=== PATIENT | female | born 1985 | race Caucasian/White ===

== ENCOUNTER 2020-02-29 21:34 | Emergency (ER) | payer MEDICAID, OTHER ==
[~2020-02-29] VITALS: Ht 167.6 cm; Wt 66.6 kg
[~2020-02-29 21:34] MED LIST: FLUO20CA39 PO; IMO2C PO; LACT1CAP61 PO; MYL80T PO; NORCO10T PO; PANT-47 PO; QUET-1 PO; RIFA550T PO; ZOF4T PO; birth control
[2020-02-29 21:38] VITALS: BP 115/78
[2020-02-29 22:00] LABS: CLARITY,URINE CLEAR (Clear)
[2020-02-29 22:01] LABS: URINE HCG NEGATIVE (NEG)
[2020-02-29 22:07] LABS: COLOR,URINE ORANGE (Yellow); UA COLLECTION TYPE CLN CATCH MIDSTREAM
[2020-02-29 22:31] LABS: BACTERIA,URINE 2+ /HPF (Neg); SQUAMOUS EPITHELIAL CELL,UR FEW /LPF (FEW); WBC,URINE 20-30 /HPF (0-4)
[2020-02-29 22:32] LABS: WBC CLUMPS,URINE MODERATE /HPF (NEGATIVE)
[2020-02-29] MEDS ORDERED: NITR100C6 PO (22:58)
[2020-02-29] MEDS ORDERED: nitrofuran/nitrofuran macrocrysal 100 MG capsule PO ONE (23:00)
== END 2020-02-29 23:16 | disposition home or self-care (01) ==
LOC: ER 21:35
DX: N30.90 Cystitis, unspecified without hematuria (principal); F31.9 Bipolar disorder, unspecified; F12.90 Cannabis use, unspecified, uncomplicated; F17.200 Nicotine dependence, unspecified, uncomplicated; Z72.89 Other problems related to lifestyle; Z90.49 Acquired absence of other specified parts of digestive tract; Z60.2 Problems related to living alone; Z88.1 Allergy status to other antibiotic agents; Z91.018 Allergy to other foods; Z91.010 Allergy to peanuts; Z88.8 Allergy status to other drugs, medicaments and biological substances; Z79.899 Other long term (current) drug therapy
CPT/HCPCS: 81001; 81025; 87077; 87088; 87186; 99283

== ENCOUNTER 2020-03-08 10:53 | Emergency (ER) | payer OTHER ==
[~2020-03-08] VITALS: Ht 167.6 cm; Wt 67.6 kg
[~2020-03-08 10:53] MED LIST changes: +NITR100C6 PO
[2020-03-08 11:07] VITALS: BP 125/70
[2020-03-08] MEDS ORDERED: CefTRIAXone 1000mg IM Kit (w/lidocaine diluent) IM ONE (11:25)
[2020-03-08 11:30] LABS: CLARITY,URINE CLOUDY (Clear); COLOR,URINE YELLOW (Yellow); GLUCOSE, URINE NEGATIVE (Neg); KETONES,URINE NEGATIVE (Neg); LEUKOCYTE ESTERASE ,URINE NEGATIVE (Neg); NITRITES, URINE NEGATIVE (Neg); OCCULT BLOOD,URINE NEGATIVE (Neg); PH,URINE 7.5 (4.8-8.0); PROTEIN,URINE NEGATIVE (Neg); UROBILINOGEN,URINE 0.2 E.U/dL (0.2-1.0)
[2020-03-08 11:31] LABS: URINE HCG NEGATIVE (NEG)
[2020-03-08] MEDS ORDERED: CEPH-572 PO (11:35)
[2020-03-08] MEDS ORDERED: PHEN-824 PO (11:35)
[2020-03-08 11:36] LABS: UA COLLECTION TYPE CLN CATCH MIDSTREAM
[2020-03-08 11:37] LABS: BACTERIA,URINE FEW /HPF (Neg); MUCUS STRANDS MANY /LPF (Neg); RBC,URINE NONE SEEN /HPF (0-2); SQUAMOUS EPITHELIAL CELL,UR MANY /LPF (FEW); WBC,URINE 0-4 /HPF (0-4)
== END 2020-03-08 11:54 | disposition home or self-care (01) ==
LOC: ER 10:53
DX: N39.0 Urinary tract infection, site not specified (principal); M54.5 Low back pain; R11.2 Nausea with vomiting, unspecified; F31.9 Bipolar disorder, unspecified; F17.200 Nicotine dependence, unspecified, uncomplicated; F12.90 Cannabis use, unspecified, uncomplicated; Z90.49 Acquired absence of other specified parts of digestive tract; Z72.89 Other problems related to lifestyle; Z60.2 Problems related to living alone; Z91.018 Allergy to other foods; Z91.010 Allergy to peanuts; Z88.1 Allergy status to other antibiotic agents; Z79.899 Other long term (current) drug therapy
CPT/HCPCS: 81001; 81025; 96372; 99283; J0696

== ENCOUNTER 2020-03-12 07:41 | Emergency (ER) | payer OTHER ==
[~2020-03-12] VITALS: Ht 167.6 cm; Wt 66.8 kg
[~2020-03-12 07:41] MED LIST changes: +CEPH-572 PO; +PHEN-824 PO
--- NOTE | 2020-03-12 08:00 | NUR ---
Dr. mckeon at bedside.
[2020-03-12] MEDS ORDERED: ondansetron/PF 4mg/2ml inj IV ONE (08:30)
[2020-03-12] MEDS ORDERED: normal saline 1000ML IV soln IVB ONE (08:30)
[2020-03-12 08:44] LABS: URINE HCG NEGATIVE (NEG)
[2020-03-12 08:45] LABS: CLARITY,URINE SLIGHTLY CLOUDY (Clear); GLUCOSE, URINE NEGATIVE (Neg); KETONES,URINE NEGATIVE (Neg); LEUKOCYTE ESTERASE ,URINE NEGATIVE (Neg); OCCULT BLOOD,URINE NEGATIVE (Neg); PROTEIN,URINE 30 mg/dl (Neg)
[2020-03-12 08:50] LABS: COLOR,URINE DARK YELLOW (Yellow); UA COLLECTION TYPE CLN CATCH MIDSTREAM
[2020-03-12 08:51] LABS: BACTERIA,URINE NONE SEEN /HPF (Neg); NITRITES, URINE NEGATIVE (Neg); RBC,URINE 0-2 /HPF (0-2); WBC,URINE 0-4 /HPF (0-4)
[2020-03-12 08:52] LABS: CAL OXALATE CRYSTALS 2+ /HPF (NEGATIVE); MUCUS STRANDS FEW /LPF (Neg); SQUAMOUS EPITHELIAL CELL,UR MANY /LPF (FEW)
[2020-03-12 09:08] LABS: BASOPHILS % (AUTO) 0.5 % (0-1); EOSINOPHILS # (AUTO) 0.4 X10'3 (0-0.9); HEMATOCRIT 37.8 % (35.0-45.0); HEMOGLOBIN 12.7 g/dl (12.0-16.0); LYMPHOCYTES # (AUTO) 1.7 X10'3 (1.1-4.8); LYMPHOCYTES % (AUTO) 36.4 % (21-51); MEAN CORPUSCULAR HEMOGLOBIN 30.2 PG (27.0-31.0); MEAN CORPUSCULAR HGB CONC 33.5 g/dL (33.0-36.5); MEAN CORPUSCULAR VOLUME 90.1 FL (78-98); MEAN PLATELET VOLUME 9.3 FL (7.4-10.4); MONOCYTES # (AUTO) 0.5 X10'3 (0-0.9); MONOCYTES % (AUTO) 10.9 % (2-12); NEUTROPHILS # (AUTO) 2.1 X10'3 (1.8-7.7); NEUTROPHILS % (AUTO) 44.2 % (42-75); PLATELET COUNT 202 X10'3 (140-440); RED BLOOD COUNT 4.19 X10'6 (4.20-5.60); RED CELL DISTRIBUTION WIDTH 13.1 % (11.5-14.5); WHITE BLOOD COUNT 4.8 X10'3 (4.5-11.0)
[2020-03-12 09:17] LABS: ALANINE AMINOTRANSFERASE 26 U/L (12-78); ALBUMIN 4.1 G/DL (3.4-5.0); ALBUMIN/GLOBULIN RATIO 1.6 (1.1-1.5); ALKALINE PHOSPHATASE 63 IU/L (46-116); ANION GAP 3 (8-16); ASPARTATE AMINO TRANSFERASE 20 U/L (10-37); BILIRUBIN,TOTAL 0.3 MG/DL (0.1-1.0); BLOOD UREA NITROGEN 4 MG/DL (7-18); BUN/CREATININE RATIO 4.6 (6.6-38.0); CALCIUM 8.7 MG/DL (8.5-10.1); CHLORIDE 101 MMOL/L (99-107); CREATININE 0.87 MG/DL (0.40-0.90); GLUCOSE 90 MG/DL (70-104); LIPASE 98 U/L (73-393); POTASSIUM 3.3 MMOL/L (3.5-5.1); SODIUM 137 MMOL/L (135-145); TOTAL CARBON DIOXIDE 32.9 MMOL/L (24-32); TOTAL PROTEIN 6.7 G/DL (6.4-8.2); eGFR 74 ML/MIN
[2020-03-12 09:36] VITALS: BP 105/69
[2020-03-12] MEDS ORDERED: B030R RC (10:47)
[2020-03-12] MEDS ORDERED: ONDA4TAB6 PO (21:02)
[2020-03-12] MEDS ORDERED: HYDR-4383 PO (21:02)
== END 2020-03-12 11:19 | disposition home or self-care (01) ==
LOC: ER 07:42
DX: R10.32 Left lower quadrant pain (principal); R30.0 Dysuria; R19.7 Diarrhea, unspecified; F31.9 Bipolar disorder, unspecified; F12.90 Cannabis use, unspecified, uncomplicated; Z90.49 Acquired absence of other specified parts of digestive tract; Z91.010 Allergy to peanuts; Z91.018 Allergy to other foods; Z88.8 Allergy status to other drugs, medicaments and biological substances; Z79.2 Long term (current) use of antibiotics; Z79.899 Other long term (current) drug therapy
CPT/HCPCS: 36415; 74176; 80053; 81001; 81025; 83690; 85025; 96361; 96374; 99284; J2405; J7030; 96360

== ENCOUNTER 2020-03-12 20:18 | Emergency (ER) | payer MEDICAID, OTHER ==
[~2020-03-12] VITALS: Ht 167.6 cm; Wt 69.0 kg
[~2020-03-12 20:18] MED LIST changes: +B030R RC
[2020-03-12] MEDS ORDERED: ONDA4TAB6 PO (21:02)
[2020-03-12] MEDS ORDERED: HYDR-4383 PO (21:02)
[2020-03-12] MEDS ORDERED: ketorolac trometh inj. 60 MG/2 ML VIAL IM ONE (21:10)
[2020-03-12 21:18] VITALS: BP 132/83
== END 2020-03-12 21:19 | disposition home or self-care (01) ==
LOC: ER 20:19
DX: R30.0 Dysuria (principal); R10.9 Unspecified abdominal pain; F31.9 Bipolar disorder, unspecified; F12.90 Cannabis use, unspecified, uncomplicated; Z90.49 Acquired absence of other specified parts of digestive tract; Z00.00 Encounter for general adult medical examination without abnormal findings; Z60.2 Problems related to living alone; Z88.8 Allergy status to other drugs, medicaments and biological substances; Z79.01 Long term (current) use of anticoagulants; Z79.899 Other long term (current) drug therapy
CPT/HCPCS: 96372; 99283; J1885

== ENCOUNTER 2020-03-14 22:35 | Emergency (ER) | payer MEDICAID ==
[~2020-03-14] VITALS: Ht 167.6 cm; Wt 66.4 kg
[~2020-03-14 22:35] MED LIST changes: +HYDR-4383 PO; +ONDA4TAB6 PO
[2020-03-14] MEDS ORDERED: morphine 4 MG/ML inj SYRINge IV ONE (23:10)
[2020-03-14] MEDS ORDERED: ondansetron/PF 4mg/2ml inj IV ONE (23:10)
[2020-03-14] MEDS ORDERED: normal saline 1000ML IV soln IVB ONE (23:10)
[2020-03-14] MEDS ORDERED: LORazepam 2 mg/ml vial IV ONE (23:10)
[2020-03-14 23:12] LABS: BASOPHILS % (AUTO) 0.6 % (0-1); EOSINOPHILS # (AUTO) 0.4 X10'3 (0-0.9); EOSINOPHILS % (AUTO) 7.9 % (0-6); HEMATOCRIT 37.3 % (35.0-45.0); HEMOGLOBIN 12.4 g/dl (12.0-16.0); LYMPHOCYTES # (AUTO) 1.7 X10'3 (1.1-4.8); LYMPHOCYTES % (AUTO) 31.6 % (21-51); MEAN CORPUSCULAR HGB CONC 33.3 g/dL (33.0-36.5); MEAN CORPUSCULAR VOLUME 90.2 FL (78-98); MEAN PLATELET VOLUME 8.9 FL (7.4-10.4); MONOCYTES # (AUTO) 0.5 X10'3 (0-0.9); MONOCYTES % (AUTO) 9.8 % (2-12); NEUTROPHILS # (AUTO) 2.8 X10'3 (1.8-7.7); NEUTROPHILS % (AUTO) 50.1 % (42-75); PLATELET COUNT 228 X10'3 (140-440); RED BLOOD COUNT 4.14 X10'6 (4.20-5.60); RED CELL DISTRIBUTION WIDTH 13.2 % (11.5-14.5); WHITE BLOOD COUNT 5.5 X10'3 (4.5-11.0)
[2020-03-14 23:13] LABS: CLARITY,URINE CLEAR (Clear); COLOR,URINE YELLOW (Yellow); GLUCOSE, URINE NEGATIVE (Neg); KETONES,URINE NEGATIVE (Neg); LEUKOCYTE ESTERASE ,URINE NEGATIVE (Neg); NITRITES, URINE NEGATIVE (Neg); OCCULT BLOOD,URINE NEGATIVE (Neg); PROTEIN,URINE NEGATIVE (Neg); UROBILINOGEN,URINE 0.2 E.U/dL (0.2-1.0)
[2020-03-14 23:14] LABS: URINE HCG NEGATIVE (NEG)
[2020-03-14 23:15] LABS: UA COLLECTION TYPE CLN CATCH MIDSTREAM
[2020-03-14 23:27] LABS: ALANINE AMINOTRANSFERASE 31 U/L (12-78); ALBUMIN 4.1 G/DL (3.4-5.0); ALBUMIN/GLOBULIN RATIO 1.6 (1.1-1.5); ALKALINE PHOSPHATASE 67 IU/L (46-116); ANION GAP 3 (8-16); ASPARTATE AMINO TRANSFERASE 24 U/L (10-37); BILIRUBIN,TOTAL 0.2 MG/DL (0.1-1.0); BLOOD UREA NITROGEN 4 MG/DL (7-18); BUN/CREATININE RATIO 4.4 (6.6-38.0); CALCIUM 8.9 MG/DL (8.5-10.1); CHLORIDE 105 MMOL/L (99-107); GLUCOSE 90 MG/DL (70-104); LIPASE 70 U/L (73-393); POTASSIUM 3.5 MMOL/L (3.5-5.1); SODIUM 139 MMOL/L (135-145); TOTAL CARBON DIOXIDE 31.1 MMOL/L (24-32); TOTAL PROTEIN 6.7 G/DL (6.4-8.2); eGFR 71 ML/MIN
[2020-03-14] MEDS ORDERED: LACT1CAP65 PO (23:54)
[2020-03-14] MEDS ORDERED: oxyCODONE SR 10mg (sust. release) tab PO ONE (23:55)
[2020-03-15 00:28] VITALS: BP 121/79
[2020-03-16] MEDS ORDERED: DOXY100C77 PO (15:53)
[2020-03-16] MEDS ORDERED: HYDR-4383 PO (15:53)
== END 2020-03-15 00:09 | disposition home or self-care (01) ==
LOC: ER 22:36
DX: R10.9 Unspecified abdominal pain (principal); F12.90 Cannabis use, unspecified, uncomplicated; F31.9 Bipolar disorder, unspecified; Z90.49 Acquired absence of other specified parts of digestive tract; Z72.89 Other problems related to lifestyle; Z60.2 Problems related to living alone; Z88.8 Allergy status to other drugs, medicaments and biological substances; Z79.899 Other long term (current) drug therapy
CPT/HCPCS: 36415; 80053; 81003; 81025; 83690; 85025; 96361; 96374; 96375; 99284; J2060; J2270; J2405; J7030

== ENCOUNTER 2020-03-16 10:58 | Emergency (ER) | payer MEDICAID ==
[~2020-03-16] VITALS: Ht 167.6 cm; Wt 66.4 kg
[~2020-03-16 10:58] MED LIST changes: +LACT1CAP65 PO
[2020-03-16 11:14] VITALS: BP 136/61
[2020-03-16 11:48] LABS: BASOPHILS % (AUTO) 0.5 % (0-1); EOSINOPHILS # (AUTO) 0.3 X10'3 (0-0.9); EOSINOPHILS % (AUTO) 6.5 % (0-6); HEMATOCRIT 38.4 % (35.0-45.0); HEMOGLOBIN 12.8 g/dl (12.0-16.0); LYMPHOCYTES # (AUTO) 1.2 X10'3 (1.1-4.8); LYMPHOCYTES % (AUTO) 26.6 % (21-51); MEAN CORPUSCULAR HEMOGLOBIN 30.2 PG (27.0-31.0); MEAN CORPUSCULAR HGB CONC 33.3 g/dL (33.0-36.5); MEAN CORPUSCULAR VOLUME 90.9 FL (78-98); MEAN PLATELET VOLUME 8.8 FL (7.4-10.4); MONOCYTES # (AUTO) 0.3 X10'3 (0-0.9); MONOCYTES % (AUTO) 6.2 % (2-12); NEUTROPHILS # (AUTO) 2.8 X10'3 (1.8-7.7); NEUTROPHILS % (AUTO) 60.2 % (42-75); PLATELET COUNT 220 X10'3 (140-440); RED BLOOD COUNT 4.23 X10'6 (4.20-5.60); RED CELL DISTRIBUTION WIDTH 13.4 % (11.5-14.5); WHITE BLOOD COUNT 4.6 X10'3 (4.5-11.0)
[2020-03-16 11:52] LABS: URINE HCG NEGATIVE (NEG)
[2020-03-16 11:55] LABS: CLARITY,URINE CLOUDY (Clear); COLOR,URINE YELLOW (Yellow); GLUCOSE, URINE NEGATIVE (Neg); KETONES,URINE NEGATIVE (Neg); LEUKOCYTE ESTERASE ,URINE NEGATIVE (Neg); NITRITES, URINE NEGATIVE (Neg); OCCULT BLOOD,URINE NEGATIVE (Neg); PH,URINE 8.5 (4.8-8.0); PROTEIN,URINE NEGATIVE (Neg); UROBILINOGEN,URINE 0.2 E.U/dL (0.2-1.0)
[2020-03-16 11:56] LABS: UA COLLECTION TYPE CLN CATCH MIDSTREAM
[2020-03-16 12:01] LABS: ALANINE AMINOTRANSFERASE 29 U/L (12-78); ALBUMIN 4.1 G/DL (3.4-5.0); ALBUMIN/GLOBULIN RATIO 1.5 (1.1-1.5); ALKALINE PHOSPHATASE 67 IU/L (46-116); ANION GAP 4 (8-16); ASPARTATE AMINO TRANSFERASE 15 U/L (10-37); BILIRUBIN,TOTAL 0.3 MG/DL (0.1-1.0); BLOOD UREA NITROGEN 3 MG/DL (7-18); BUN/CREATININE RATIO 3.5 (6.6-38.0); CALCIUM 8.7 MG/DL (8.5-10.1); CHLORIDE 103 MMOL/L (99-107); CREATININE 0.85 MG/DL (0.40-0.90); GLUCOSE 91 MG/DL (70-104); LIPASE < 50 U/L (73-393); POTASSIUM 3.7 MMOL/L (3.5-5.1); SODIUM 140 MMOL/L (135-145); TOTAL CARBON DIOXIDE 32.8 MMOL/L (24-32); TOTAL PROTEIN 6.9 G/DL (6.4-8.2); eGFR 76 ML/MIN
[2020-03-16 12:01] LABS: BACTERIA,URINE 1+ /HPF (Neg); RBC,URINE NONE SEEN /HPF (0-2); SQUAMOUS EPITHELIAL CELL,UR MANY /LPF (FEW); WBC,URINE 0-4 /HPF (0-4)
[2020-03-16] MEDS ORDERED: CefTRIAXone 250MG IM Kit w/LIDOcaine IM ONE (13:25)
[2020-03-16] MEDS ORDERED: azithromycin 250mg tablet PO ONE (13:25)
[2020-03-16] MEDS ORDERED: ondansetron 4mg rapidly disintigrating tab PO ONE (13:35)
[2020-03-16] MEDS ORDERED: HYDROcodone/acetaminophen 5mg/325mg tablet PO ONE (13:35)
--- NOTE | 2020-03-16 13:49 | NUR ---
US at bedside
[2020-03-16] MEDS ORDERED: iohexol 300mg/ml 100ml inj. ONE (14:52)
[2020-03-16] MEDS ORDERED: DOXY100C77 PO (15:53)
[2020-03-16] MEDS ORDERED: HYDR-4383 PO (15:53)
== END 2020-03-16 16:51 | disposition home or self-care (01) ==
LOC: ER 10:59
DX: R10.30 Lower abdominal pain, unspecified (principal); R42 Dizziness and giddiness; R19.7 Diarrhea, unspecified; F31.9 Bipolar disorder, unspecified; F12.90 Cannabis use, unspecified, uncomplicated; Z87.440 Personal history of urinary (tract) infections; Z90.89 Acquired absence of other organs; Z90.49 Acquired absence of other specified parts of digestive tract; Z72.89 Other problems related to lifestyle; Z60.2 Problems related to living alone; Z88.1 Allergy status to other antibiotic agents; Z91.010 Allergy to peanuts; Z91.018 Allergy to other foods; Z79.2 Long term (current) use of antibiotics; Z79.899 Other long term (current) drug therapy
CPT/HCPCS: 36415; 74177; 76830; 76856; 80053; 81001; 81025; 83690; 85025; 87210; 87491; 87591; 93976; 96372; 99285; J0696; Q0112; Q9967

== ENCOUNTER 2020-07-21 15:40 | Emergency (ER) | payer BC, MEDICAID ==
[~2020-07-21] VITALS: Ht 167.6 cm; Wt 68.2 kg
[~2020-07-21 15:40] MED LIST changes: -B030R RC; -CEPH-572 PO
[2020-07-21 15:43] VITALS: BP 125/74
== END 2020-07-21 17:26 | disposition left against medical advice (07) ==
LOC: ER 15:41
DX: T81.9XXA Unspecified complication of procedure, initial encounter (principal); Z53.21 Procedure and treatment not carried out due to patient leaving prior to being seen by health care provider; X58.XXXA Exposure to other specified factors, initial encounter; Y93.89 Activity, other specified; Y92.89 Other specified places as the place of occurrence of the external cause; Y99.8 Other external cause status